=== PATIENT | male | born 1995 | race Asian ===

== ENCOUNTER 2017-08-24 13:53 | Outpatient (CLI) | payer BC, OTHER ==
[~2017-08-24 13:53] MED LIST: Gadobenate Dimeglumine 529 MG/1 ML (20ML VIAL) ONE
--- NOTE | 2017-08-24 16:26 | MRI ---
BRAIN MRI WITH AND WITHOUT CONTRAST: Date: 08/24/17 COMPARISON: 06/01/16 and prior. HISTORY: Benign neoplasm of cranial nerve, history of surgical resection of vestibular schwannoma. TECHNIQUE: Multiplanar, multisequence MR imaging of the brain is obtained with and without contrast using an int ernal auditory canal protocol. FINDINGS: The diffusion-weighted imaging demonstrates no evidence for acute infarction. There is polypoid mucosal thickening within the posterior aspect of the sphenoid sinus on the right, stable. No evidence of midline shift or mass effect is noted. Arterial flow-voids at the axial level of the s kull base appear grossly unremarkable on the T2-weighted imaging. Extensive postoperative changes are seen involving the posterior fossa on the left and the left masto id air cells. There is fat packing filling a large portion of the mastoid air cells on the left. Ther e is encephalomalacia involving the left cerebellar hemisphere inferiorly and laterally, as well as a nteriorly, consistent with the provided history of prior cervical resection of a vestibular schwannom a. The above described postoperative changes appear stable when compared to the prior examination. 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 On the right, the internal auditory canal, cochlea, vestibule, and semicircular canals appear within normal limits. The postcontrast imaging demonstrates no abnormal enhancement at the postsurgical site to suggest the presence of residual or recurrent tumor. Whole brain postcontrast imaging appears grossly unremarkab le. IMPRESSION: Stable postoperative changes as described above. No MR evidence of residual or recurrent tumor. POS: [facility]
== END 2017-08-24 13:54 | disposition home or self-care (01) ==
LOC: TBSIIMAG 13:53
PROVIDERS: ATTEND Neurological Surgery
DX: D33.3 Benign neoplasm of cranial nerves (principal); Z98.890 Other specified postprocedural states
CPT/HCPCS: 70553; A9579

== ENCOUNTER 2021-02-03 13:56 | Outpatient (CLI) | payer OTHER | END 2021-02-03 13:57 | disposition home or self-care (01) | LOC: TBSIIMAG 13:56 | PROVIDERS: ATTEND Neurological Surgery | DX: D33.3 Benign neoplasm of cranial nerves (principal); Z98.890 Other specified postprocedural states | CPT/HCPCS: 70553 ==

== ENCOUNTER 2022-04-09 09:26 | Outpatient (CLI) | payer OTHER | END 2022-04-09 09:27 | disposition home or self-care (01) | LOC: TBSIIMAG 09:26 | PROVIDERS: ATTEND Neurological Surgery | DX: D33.3 Benign neoplasm of cranial nerves (principal); Z98.890 Other specified postprocedural states | CPT/HCPCS: 70553 ==

== ENCOUNTER 2023-08-30 11:06 | Outpatient (CLI) | payer OTHER, SELFPAY | END 2023-08-30 11:07 | disposition home or self-care (01) | LOC: SCSMRI 11:06 | PROVIDERS: ATTEND Neurological Surgery | DX: D33.3 Benign neoplasm of cranial nerves (principal) | CPT/HCPCS: 70553 ==